=== PATIENT | male | born 1970 | race Caucasian/White ===

== ENCOUNTER 2016-07-24 05:33 | Emergency (ER) | payer BC ==
--- NOTE | 2016-07-24 05:47 | Emergency Department Record ---
History of Present Illness - General Chief complaint: ENT Stated complaint: RT EAR PAIN Time Seen by Provider: 07/24/16 05:46 Source: Patient Mode of Arrival: Ambulatory Limitations: No limitations - History of Present Illness Initial comments: The patient has had mild congestion and drainage for a week or so and then developed R ear pain. He did use an ear candle to remove some wax but still has the pressure and pain. He denies any significant ST, fever, or SZYMANSKI. MD complaint: Ear pain Onset/Timin -: Days(s) Location: R ear Severity scale (1-10): 6 Quality: Aching - Related Data Previous Rx's Medication Instructions Recorded Amoxicillin 500 mg PO TID #30 capsule 07/24/16 Ciprofloxacin HCl/Dexameth 4 drop OT BID #1 btl 07/24/16 [Ciprodex Otic Suspension] Fluticasone Propionate [Flonase] 2 spray EACH NARES DAILY #1 bottle 07/24/16 Allergies Allergy/AdvReac Type Severity Reaction Status Date / Time azithromycin AdvReac pt states Unverified 12/23/15 16:10 ineffective Travel Screening - Travel/Exposure Within Last 30 Days Have you traveled within the last 30 days?: No Review of Systems Constitutional: Denies: Chills, Fever Eyes: Denies: Eye discharge ENT: Reports: Congestion, Ear pain Respiratory: Denies: Cough, Dyspnea Past Medical History - SOCIAL HISTORY Smoking Status: Current every day smoker Alcohol Use: None Drug Use: None - RESPIRATORY Hx Respiratory Disorders: No - CARDIOVASCULAR Hx Cardio Disorders: No - NEURO Hx Neuro Disorders: No - GI Hx GI Disorders: No - Hx Genitourinary Disorders: No - ENDOCRINE Hx Endocrine Disorders: No - MUSCULOSKELETAL Hx Musculoskeletal Disorders: No - PSYCH Hx Psych Problems: No - HEMATOLOGY/ONCOLOGY Hx Hematology/Oncology Disorders: No Family Medical History Any Significant Family History?: No Physical Exam - General General Appearance: Alert, Oriented x3, Cooperative, No acute distress - Head Head exam: Atraumatic, Normocephalic, Normal inspection - Eye Eye exam: Normal appearance, PERRL - ENT ENT exam: negative: Normal exam, TM's normal bilaterally (The R TM is erythematous, bulging, with a loss of landmarks.) Nasal Exam: Normal inspection Mouth exam: Normal external inspection Throat exam: Tonsillar erythema. negative: Normal inspection, Tonsillomegaly, Tonsillar exudate - Neck Neck exam: Normal inspection, Full ROM. negative: Lymphadenopathy, Meningismus , Tenderness - Respiratory Respiratory exam: Normal lung sounds bilaterally. negative: Respiratory distress - Cardiovascular Cardiovascular Exam: Regular rate, Normal rhythm, Normal heart sounds Course Vital Signs 07/24/16 05:42 Temperature 97.7 F Pulse Rate [ 68 Pulse Ox Probe] Respiratory 18 Rate Blood Pressure 136/93 [Left Arm] Pulse Ox 100 - Reevaluation(s) Reevaluation #1: I did discuss with the patient the fact it appears he has a middle ear infection. We will place him on oral Abx's and ear drops for home. 07/24/16 05:54 Disposition Disposition: Discharge Clinical Impression: Otitis media Qualifiers: Otitis media type: unspecified Laterality: right Disposition: Home, Self-Care Condition: (1) Good Instructions: Otitis Media (ED) Additional Instructions: Please take Tylenol or Motrin for pain and take the Amox and Ciprodex as directed. Please see your PCP for recheck in 2-3 days if not better and return to the ER if worse. Prescriptions: Amoxicillin 500 mg PO TID #30 capsule Ciprofloxacin HCl/Dexameth [Ciprodex Otic Suspension] 4 drop OT BID #1 btl Fluticasone Propionate [Flonase] 2 spray EACH NARES DAILY #1 bottle Forms: Patient Portal Access Time of Disposition: 05:56
[2016-07-24] MEDS ORDERED: IBUPROFEN 600 MG TABLET PO ONE (05:50)
[2016-07-24] MEDS ORDERED: AMOXICILLIN 500 MG TABLET PO ONE (05:50)
== END 2016-07-24 06:11 | disposition home or self-care (01) ==
LOC: ER 05:33
DX: H66.91 Otitis media, unspecified, right ear (principal); F17.210 Nicotine dependence, cigarettes, uncomplicated
CPT/HCPCS: 99282